=== PATIENT | male | born 1990 | race Two or more races ===

== ENCOUNTER 2019-01-26 14:32 | Emergency (ER) | payer SELFPAY ==
[~2019-01-26] VITALS: Ht 175.3 cm; Wt 87.1 kg
[2019-01-26 14:45] VITALS: BP 152/81
[2019-01-26] MEDS ORDERED: IBUPROFEN 600 MG TABLET. PO ONE (15:00)
--- NOTE | 2019-01-26 15:35 | PHYS DOC ---
Past History Past Medical History: No Pertinent History Past Surgical History: No Surgical History Smoking: Cigarettes Alcohol Use: Occasionally Drug Use: None Adult General Chief Complaint Chief Complaint: ANKLE PROBLEM HPI HPI 28-year-old male presents with report of left ankle pain and swelling. Patient reports he was at his work and ended up rolling the ankle coming off a piece of equipment. Patient reports tenderness with bearing weight. Denies numbness or tingling. Review of Systems Review of Systems Constitutional: Denies fever or chills Eyes: Denies redness or eye pain HENT: Denies nasal congestion or sore throat Respiratory: Denies cough or shortness of breath Cardiovascular: Denies chest pain or palpitations GI: Denies abdominal pain, nausea, or vomiting : Denies dysuria or hematuria Musculoskeletal: Denies back pain; reports left ankle pain and swelling Integument: Denies rash; reports left ankle swelling and bruising Neurologic: Denies headache, focal weakness or sensory changes Complete systems were reviewed and found to be within normal limits, except as documented in this note. Current Medications Current Medications Current Medications Medications (Trade) Dose Ordered Sig/Nita Start Time Stop Time Status Last Admin Dose Admin Ibuprofen (Motrin) 600 mg 1X ONCE 01/26/19 15:00 01/26/19 15:04 DC 01/26/19 15:00 600 MG Allergies Allergies Allergies Coded Allergies Type Severity Reaction Last Updated Verified No Known Drug Allergies 01/26/19 No Physical Exam Physical Exam Constitutional: Well developed, well nourished, no acute distress, non-toxic appearance HENT: Normocephalic, atraumatic, oropharynx moist Eyes: Conjunctiva normal, no discharge Neck: Normal range of motion, no tenderness, supple Cardiovascular: Left PT and DP +2, CR < 2 sec Lungs & Thorax: NO respiratory distress, no trauma Skin: Warm, dry, no erythema, no rash Extremities: Left lateral ankle tenderness and swelling, anterior draw stable Neurologic: Alert and oriented X 3, no focal deficits noted Psychologic: Affect normal, judgement normal Current Patient Data Vital Signs Vital Signs Date Time Temp Pulse Resp B/P (MAP) Pulse Ox O2 Delivery O2 Flow Rate FiO2 01/26/19 14:45 98.4 86 16 98 Room Air EKG EKG [] Radiology/Procedures Radiology/Procedures PROCEDURE: ANKLE LEFT 3V ANKLE LEFT 3V History: Pain Comparison: None. Findings: 4 views of the left ankle are submitted. No acute fracture or dislocation is identified. There is soft tissue swelling. Impression: 1. No acute osseous abnormality is identified by radiographs. Electronically signed by: Avel Krause MD (01/26/2019 3:22 PM) [id number] Course & Med Decision Making Course & Med Decision Making Pertinent Imaging studies reviewed. (See chart for details) Patient presents with history of present illness and physical exam consistent for ankle sprain. Left lateral tenderness noted on palpation. X-ray obtained without fracture or dislocation. Ice applied. Louie wrap and air splint applied. Crutches provided with education. Patient stable for discharge with outpatient follow-up with PCP/orthopedics. Orthopedic referral provided. Discussed findings and plan with patient and coworker, who acknowledge understanding and agreement. Dragon Disclaimer Dragon Disclaimer This electronic medical record was generated, in whole or in part, using a voice recognition dictation system. Departure Departure: Impression: Primary Impression: Left ankle sprain Disposition: HOME, SELF-CARE Condition: STABLE Referrals: PCP,NO (PCP) DESEAN JOHNSON MD Patient Instructions: Ankle Sprain, [id number], Crutch Use, [id number], RICE - Routine Care for Injuries, [id number] Additional Instructions: Use over the counter Tylenol and Ibuprofen for pain or discomfort. Problem Qualifiers Primary Impression: Left ankle sprain Encounter type: initial encounter Involved ligament of ankle: unspecified ligament Qualified Codes: S93.402A - Sprain of unspecified ligament of left ankle, initial encounter CORNELIA JAMESON DO Jan 26, 2019 15:34
--- NOTE | 2019-01-26 16:41 | RAD ---
ANKLE LEFT 3V History: Pain Comparison: None. Findings: 4 views of the left ankle are submitted. No acute fracture or dislocation is identified. There is soft tissue swelling. Impression: 1. No acute osseous abnormality is identified by radiographs. Electronically signed by: Avel Krause MD (01/26/2019 3:22 PM) [id number]
== END 2019-01-26 15:42 | disposition home or self-care (01) ==
LOC: ER 14:32
DX: S93.402A Sprain of unspecified ligament of left ankle, initial encounter (principal); X50.9XXA Other and unspecified overexertion or strenuous movements or postures, initial encounter; Y93.89 Activity, other specified; Y92.89 Other specified places as the place of occurrence of the external cause; Y99.0 Civilian activity done for income or pay; F17.210 Nicotine dependence, cigarettes, uncomplicated
CPT/HCPCS: 73610; 99284; L4350